=== PATIENT | male | born 1955 | race Caucasian/White ===

== ENCOUNTER 2023-03-11 04:27 | Day surgery (SDC) | payer OTHER, BC ==
[2023-03-11 09:19] VITALS: BMI 24.9
[2023-03-11 11:41] VITALS: TEMP 98
[2023-03-11 12:37] VITALS: BP 122/58; PULSE 82; RESP 20
== END 2023-03-11 11:28 | disposition home or self-care (01) ==
LOC: JASU-ENDO 04:27
PROVIDERS: ATTEND Internal Medicine Gastroenterology
PROC: 0DBH8ZX Excision of Cecum, Via Natural or Artificial Opening Endoscopic, Diagnostic (ICD-10-PCS; principal; 2023-03-11 10:00)
DX: Z12.11 Encounter for screening for malignant neoplasm of colon (principal); D12.0 Benign neoplasm of cecum; K64.8 Other hemorrhoids; Z86.010 Personal history of colon polyps; I10 Essential (primary) hypertension; E11.9 Type 2 diabetes mellitus without complications; Z79.84 Long term (current) use of oral hypoglycemic drugs
CPT/HCPCS: 82962; 88305-TC

== ENCOUNTER 2024-08-31 04:58 | Day surgery (SDC) | payer OTHER, BC ==
[2024-08-30 15:01] VITALS: BMI 24.9
[2024-08-31] MEDS ORDERED: LIDOCAINE VISCOUS 2% ORAL/TOP 15 ML UNIT-DOSE CUP ONE (12:56)
[2024-08-31 13:23] VITALS: TEMP 97.9
[2024-08-31 14:01] VITALS: BP 120/74; PULSE 74; RESP 18
== END 2024-08-31 14:02 | disposition home or self-care (01) ==
LOC: JASU-ENDO 04:58
PROVIDERS: ATTEND Internal Medicine Gastroenterology
PROC: 0DB78ZX Excision of Stomach, Pylorus, Via Natural or Artificial Opening Endoscopic, Diagnostic (ICD-10-PCS; 2024-08-31)
PROC: 0DB68ZX Excision of Stomach, Via Natural or Artificial Opening Endoscopic, Diagnostic (ICD-10-PCS; principal; 2024-08-31 11:30)
DX: K29.50 Unspecified chronic gastritis without bleeding (principal); K31.89 Other diseases of stomach and duodenum
CPT/HCPCS: 82962; 88305-TC; 88342-TC